=== PATIENT | female | born 2000 | race Caucasian/White ===

== ENCOUNTER 2022-02-13 15:54 | Emergency (ER) | payer MEDICAID, SELFPAY ==
[2022-02-13 16:01] VITALS: BP 149/115; PULSE 101; RESP 14; TEMP 36.8; O2SAT 99; BMI 29.7
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
[2022-02-13 16:47] LABS: HCG Qualitative Urine. Negative (Negative)
[2022-02-13] MEDS: acetaminophen 500 mg Tablet 1000 MG PO (18:34)
== END 2022-02-13 18:56 | disposition home or self-care (01) ==
PROVIDERS: Emergency Provider Physician Assistant
DX: S13.4XXA Sprain of ligaments of cervical spine, initial encounter (principal); V59.40XA Driver of pick-up truck or van injured in collision with unspecified motor vehicles in traffic accident, initial encounter
CPT/HCPCS: 70450; 71045; 72125; 72128; 72131; 81025; 99284

== ENCOUNTER → 2023-05-14 12:50 | Outpatient (BNVA) | payer MEDICAID, SELFPAY | PROVIDERS: Referring Provider Family Medicine; Visit Provider Nurse Practitioner | DX: R42 Dizziness and giddiness (principal) | CPT/HCPCS: 80053; 84443; 85025 ==